=== PATIENT | female | born 1965 | race Caucasian/White ===

== ENCOUNTER 2016-07-01 00:37 | Emergency (ER) | payer MEDICARE, MEDICAID ==
[~2016-07-01] VITALS: Ht 167.6 cm; Wt 108.9 kg
[~2016-07-01 00:37] MED LIST: AMOXICILLIN500 MG PO; ASPIRIN DELAYE325 MG PO; BENADRYL25 M1 PO; CLINDAMYCIN HC300 MG PO; DIFLUCAN150 MG PO; FISH OIL 10001000 MG PO; FLONASE0.05 MG/AC NS; KEFLEX500 MG PO; KLONOPIN1 MG PO; MACROBID100 M1 PO; MEDROL DOSEPAK4 MG PO; MIRAPEX0.5 MG PO; MIRAPEX1 MG PO; MOTRIN800 MG PO; Motrin,Rufen800 MG PO; NORCO 325 MG-7.1 TAB PO; PEN-VK500 MG PO; PEPCID20 MG PO; PERCOCET 325 MG1 TA2 PO; PERCOCET 325 MG1 TA6 PO; PRAVASTATIN SOD40 MG PO; PRILOSEC20 MG PO; PYRIDIUM200 M1 PO; VALIUM10 MG PO; VICODIN 5/500 505 MG PO; VICODIN 500 MG-1 TAB PO; VITAMIN D1000 IU PO; ZESTRIL10 MG PO; ZITHROMAX Z PA250 MG PO; ZOCOR40 MG PO; ZYRTEC10 MG PO
[2016-07-01 00:43] VITALS: BP 147/85
[2016-07-01] MEDS ORDERED: HYDROCODONE BIT1 T11 PO (01:08)
[2016-07-01] MEDS ORDERED: PENICILLIN VK500 MG PO (01:08)
== END 2016-07-01 01:27 | disposition home or self-care (01) ==
LOC: ED 00:37
DX: K04.7 Periapical abscess without sinus (principal)

== ENCOUNTER 2017-01-09 01:52 | Emergency (ER) | payer MEDICARE, MEDICAID ==
[~2017-01-09] VITALS: Ht 165.1 cm; Wt 112.9 kg
[~2017-01-09 01:52] MED LIST changes: +HYDROCODONE BIT1 T11 PO; +PENICILLIN VK500 MG PO
[2017-01-09 01:57] VITALS: BP 125/78
[2017-01-09] MEDS ORDERED: CLINDAMYCIN150 MG PO (03:09)
[2017-01-09] MEDS ORDERED: VIBRAMYCIN100 MG PO (03:09)
== END 2017-01-09 04:11 | disposition home or self-care (01) ==
LOC: ED 01:52
DX: N61.1 Abscess of the breast and nipple (principal); F17.200 Nicotine dependence, unspecified, uncomplicated; Z90.710 Acquired absence of both cervix and uterus; Z98.51 Tubal ligation status; Z79.82 Long term (current) use of aspirin; Z79.899 Other long term (current) drug therapy; Z86.73 Personal history of transient ischemic attack (TIA), and cerebral infarction without residual deficits; Z98.890 Other specified postprocedural states

== ENCOUNTER → 2017-04-24 | Outpatient (CLI) | payer MEDICARE, MEDICAID ==
[~2017-04-24] MED LIST changes: +CLINDAMYCIN150 MG PO; +VIBRAMYCIN100 MG PO
== END | disposition home or self-care (01) ==
LOC: US 13:00
DX: M79.605 Pain in left leg (principal); M79.604 Pain in right leg; R60.0 Localized edema; I10 Essential (primary) hypertension

== ENCOUNTER → 2018-12-20 | Outpatient (CLI) | payer OTHER, MEDICAID ==
[2018-12-20 14:37] LABS: BASO # 0.1 10*3/uL (0.0-0.1); BASO % 0.6 % (0.0-1.0); EOS # 0.2 10*3/uL (0.0-0.4); EOS % 1.5 % (1.0-4.0); HEMATOCRIT 43.3 % (37.0-47.0); HEMOGLOBIN 13.9 g/dl (12.0-16.0); LYMPH # 2.7 10*3/uL (1.3-4.4); LYMPH % 26.7 % (27.0-41.0); MEAN CELL VOLUME 80.9 fl (81.0-99.0); MEAN CORPUSCULAR HGB CONC 32.1 g/dl (33.0-37.0); MEAN PLATELET VOLUME 10.3 fl (9.6-12.3); MONO # 0.7 10*3/uL (0.1-1.0); MONO % 7.1 % (3.0-9.0); NEUT # 6.4 10*3/uL (2.3-7.9); NEUT % 63.3 % (47.0-73.0); PLATELET COUNT AUTOMATED 344 10*3/uL (130-400); RED BLOOD COUNT 5.35 10*6/uL (4.10-5.10); RED CELL DISTRI WIDTH 15.4 % (0-14.5); WHITE BLOOD COUNT 10.1 10*3/uL (4.8-10.8)
[2018-12-20 15:37] LABS: ALBUMIN 3.3 gm/dl (3.1-4.5); ALKALINE PHOSPHATASE 89 U/L (45-117); BUN 15 mg/dl (7-24); CHLORIDE 102 mmol/L (98-107); CHOLESTEROL 172 mg/dL (<200); CREATININE 0.98 mg/dL (0.55-1.02); HDL CHOLESTEROL 33 mg/dl (40-60); LDL CHOLESTEROL 87 mg/dL (9-159); POTASSIUM 4.1 mmol/L (3.5-5.1); SGOT/AST 26 IU/L (3-35); SGPT/ALT 39 U/L (12-78); SODIUM 137 mmol/L (136-145); TOTAL PROTEIN 7.3 gm/dL (6.4-8.2); TRIGLYCERIDES 260 mg/dl (<150); VLDL CHOLESTEROL 52 mg/dL (6-40)
== END | disposition home or self-care (01) ==
LOC: LAB 13:58
PROVIDERS: Family Medicine
DX: M75.91 Shoulder lesion, unspecified, right shoulder (principal); E11.42 Type 2 diabetes mellitus with diabetic polyneuropathy; E78.5 Hyperlipidemia, unspecified; R53.83 Other fatigue

== ENCOUNTER 2023-10-09 11:21 | Emergency (ER) | payer MEDICARE, MEDICAID ==
[~2023-10-09] VITALS: Wt 99.8 kg
[2023-10-09 11:26] VITALS: BP 145/76
[2023-10-09] MEDS ORDERED: Acetaminophen/Hydrocodone 5 MG/325 MG TABLET PO ONE (12:05)
[2023-10-09] MEDS ORDERED: Lidocaine Hydrochloride 3% 30 GM CREAM T ONE (12:30)
== END 2023-10-09 14:04 | disposition home or self-care (01) ==
LOC: ED 11:21
DX: T23.202A Burn of second degree of left hand, unspecified site, initial encounter (principal); T24.222A Burn of second degree of left knee, initial encounter; T31.0 Burns involving less than 10% of body surface; I10 Essential (primary) hypertension; E11.9 Type 2 diabetes mellitus without complications; Z90.710 Acquired absence of both cervix and uterus; Z98.51 Tubal ligation status; Z98.890 Other specified postprocedural states; X08.8XXA Exposure to other specified smoke, fire and flames, initial encounter; Y93.89 Activity, other specified; Y92.89 Other specified places as the place of occurrence of the external cause; Y99.8 Other external cause status

== ENCOUNTER → 2023-10-10 | Outpatient (CLI) | payer MEDICARE, MEDICAID | END | disposition home or self-care (01) | LOC: WOUNDCARE 03:05 | PROVIDERS: ATTEND Nurse Practitioner Family | DX: T24.332A Burn of third degree of left lower leg, initial encounter (principal); T23.392A Burn of third degree of multiple sites of left wrist and hand, initial encounter; T24.222A Burn of second degree of left knee, initial encounter; T31.0 Burns involving less than 10% of body surface; I10 Essential (primary) hypertension; I25.119 Atherosclerotic heart disease of native coronary artery with unspecified angina pectoris; L53.9 Erythematous condition, unspecified; E78.00 Pure hypercholesterolemia, unspecified; Z87.891 Personal history of nicotine dependence; Z86.73 Personal history of transient ischemic attack (TIA), and cerebral infarction without residual deficits; Z90.710 Acquired absence of both cervix and uterus; Z79.82 Long term (current) use of aspirin; Z79.899 Other long term (current) drug therapy; X08.8XXA Exposure to other specified smoke, fire and flames, initial encounter; Y93.89 Activity, other specified; Y92.89 Other specified places as the place of occurrence of the external cause; Y99.8 Other external cause status ==

== ENCOUNTER → 2023-10-12 | Outpatient (CLI) | payer MEDICARE, MEDICAID | END | disposition home or self-care (01) | LOC: WOUNDCARE 11:25 | PROVIDERS: ATTEND Nurse Practitioner Family | DX: T24.332D Burn of third degree of left lower leg, subsequent encounter (principal); T23.3 Burn of third degree of wrist and hand; T24.222D Burn of second degree of left knee, subsequent encounter; T31.0 Burns involving less than 10% of body surface; I10 Essential (primary) hypertension; I25.119 Atherosclerotic heart disease of native coronary artery with unspecified angina pectoris; L53.9 Erythematous condition, unspecified; E78.00 Pure hypercholesterolemia, unspecified; Z87.891 Personal history of nicotine dependence; Z86.73 Personal history of transient ischemic attack (TIA), and cerebral infarction without residual deficits; Z90.710 Acquired absence of both cervix and uterus; Z79.82 Long term (current) use of aspirin; Z79.899 Other long term (current) drug therapy; X08.8XXD Exposure to other specified smoke, fire and flames, subsequent encounter ==

== ENCOUNTER → 2023-10-16 | Outpatient (CLI) | payer MEDICARE, MEDICAID | END | disposition home or self-care (01) | LOC: WOUNDCARE 00:09 | PROVIDERS: ATTEND Nurse Practitioner Family | DX: T24.332D Burn of third degree of left lower leg, subsequent encounter (principal); T23.3 Burn of third degree of wrist and hand; T24.222D Burn of second degree of left knee, subsequent encounter; T31.0 Burns involving less than 10% of body surface; I10 Essential (primary) hypertension; I25.119 Atherosclerotic heart disease of native coronary artery with unspecified angina pectoris; L53.9 Erythematous condition, unspecified; E78.00 Pure hypercholesterolemia, unspecified; Z87.891 Personal history of nicotine dependence; Z86.73 Personal history of transient ischemic attack (TIA), and cerebral infarction without residual deficits; Z90.710 Acquired absence of both cervix and uterus; Z79.82 Long term (current) use of aspirin; Z79.899 Other long term (current) drug therapy; X08.8XXD Exposure to other specified smoke, fire and flames, subsequent encounter ==

== ENCOUNTER → 2023-10-29 | Day surgery (SDC) | payer MEDICARE, MEDICAID ==
[~2023-10-29] VITALS: Ht 170.1 cm; Wt 99.8 kg
[~2023-10-29] MED LIST changes: +BUPIVACAINE 0.5% 0 ML IV ONE; +ENDOCET 5-3251 EACH PO; +Ketamine Hydrochloride 500 MG/10 ML VIAL IV ONE; +Lactated Ringer's Solution 1,000 ML IV ONE; +Lactated Ringer's Solution 1,000 ML IV SCH; +Lidocaine Hydrochloride 2% 10 ML AMP IM ONE; +Lidocaine Hydrochloride 30 ML VIAL ONE; +Midazolam Hydrochloride 2 MG/2 ML VIAL IV ONE; +PROPOFOL 200 MG/20 ML VIAL IV ONE; +Phenylephrine Hydrochloride 1 MG/10 ML SYRINGE IV ONE; +fentaNYL CITRATE 100 MCG/2 ML VIAL IV ONE
[2023-10-29 09:30] VITALS: BP 134/84
[2023-10-29 10:40] VITALS: BP 131/77
[2023-10-29 10:55] VITALS: BP 109/69
[2023-10-29 11:10] VITALS: BP 123/72
== END | disposition home or self-care (01) ==
LOC: SDC 10-25 10:15
PROVIDERS: ATTEND Surgery
DX: T24.222A Burn of second degree of left knee, initial encounter (principal); I10 Essential (primary) hypertension; E11.9 Type 2 diabetes mellitus without complications; Z90.710 Acquired absence of both cervix and uterus; Z87.440 Personal history of urinary (tract) infections; Z79.891 Long term (current) use of opiate analgesic; Z79.82 Long term (current) use of aspirin; Z79.899 Other long term (current) drug therapy

== ENCOUNTER → 2023-11-06 | Outpatient (CLI) | payer MEDICARE, MEDICAID ==
[~2023-11-06] MED LIST changes: -BUPIVACAINE 0.5% 0 ML IV ONE; -Ketamine Hydrochloride 500 MG/10 ML VIAL IV ONE; -Lactated Ringer's Solution 1,000 ML IV ONE; -Lactated Ringer's Solution 1,000 ML IV SCH; -Lidocaine Hydrochloride 2% 10 ML AMP IM ONE; -Lidocaine Hydrochloride 30 ML VIAL ONE; -Midazolam Hydrochloride 2 MG/2 ML VIAL IV ONE; -PROPOFOL 200 MG/20 ML VIAL IV ONE; -Phenylephrine Hydrochloride 1 MG/10 ML SYRINGE IV ONE; -fentaNYL CITRATE 100 MCG/2 ML VIAL IV ONE
== END | disposition home or self-care (01) ==
LOC: WOUNDCARE 02:38
PROVIDERS: ATTEND Nurse Practitioner Family
DX: T24.332D Burn of third degree of left lower leg, subsequent encounter (principal); T23.3 Burn of third degree of wrist and hand; T24.222D Burn of second degree of left knee, subsequent encounter; T31.0 Burns involving less than 10% of body surface; I10 Essential (primary) hypertension; I25.119 Atherosclerotic heart disease of native coronary artery with unspecified angina pectoris; L53.9 Erythematous condition, unspecified; E78.00 Pure hypercholesterolemia, unspecified; Z87.891 Personal history of nicotine dependence; Z86.73 Personal history of transient ischemic attack (TIA), and cerebral infarction without residual deficits; Z90.710 Acquired absence of both cervix and uterus; Z79.82 Long term (current) use of aspirin; Z79.899 Other long term (current) drug therapy; X08.8XXD Exposure to other specified smoke, fire and flames, subsequent encounter

== ENCOUNTER → 2023-11-21 | Outpatient (CLI) | payer MEDICARE, MEDICAID | END | disposition home or self-care (01) | LOC: WOUNDCARE 02:11 | PROVIDERS: ATTEND Nurse Practitioner Family | DX: T24.332D Burn of third degree of left lower leg, subsequent encounter (principal); T24.222D Burn of second degree of left knee, subsequent encounter; T31.0 Burns involving less than 10% of body surface; I10 Essential (primary) hypertension; I25.119 Atherosclerotic heart disease of native coronary artery with unspecified angina pectoris; L53.9 Erythematous condition, unspecified; E78.00 Pure hypercholesterolemia, unspecified; Z87.891 Personal history of nicotine dependence; Z86.73 Personal history of transient ischemic attack (TIA), and cerebral infarction without residual deficits; Z90.710 Acquired absence of both cervix and uterus; Z79.82 Long term (current) use of aspirin; Z79.899 Other long term (current) drug therapy; X08.8XXD Exposure to other specified smoke, fire and flames, subsequent encounter ==

== ENCOUNTER → 2023-12-05 | Outpatient (CLI) | payer MEDICARE, MEDICAID | END | disposition home or self-care (01) | LOC: WOUNDCARE 01:01 | PROVIDERS: ATTEND Nurse Practitioner Family | DX: T24.332D Burn of third degree of left lower leg, subsequent encounter (principal); T24.222D Burn of second degree of left knee, subsequent encounter; T31.0 Burns involving less than 10% of body surface; I10 Essential (primary) hypertension; I25.119 Atherosclerotic heart disease of native coronary artery with unspecified angina pectoris; L53.9 Erythematous condition, unspecified; E78.00 Pure hypercholesterolemia, unspecified; Z87.891 Personal history of nicotine dependence; Z86.73 Personal history of transient ischemic attack (TIA), and cerebral infarction without residual deficits; Z90.710 Acquired absence of both cervix and uterus; Z79.82 Long term (current) use of aspirin; Z79.899 Other long term (current) drug therapy; X08.8XXD Exposure to other specified smoke, fire and flames, subsequent encounter ==

== ENCOUNTER → 2023-12-12 | Outpatient (CLI) | payer MEDICARE, MEDICAID | END | disposition home or self-care (01) | LOC: WOUNDCARE 00:20 | PROVIDERS: ATTEND Nurse Practitioner Family | DX: T23.202D Burn of second degree of left hand, unspecified site, subsequent encounter (principal); T24.232D Burn of second degree of left lower leg, subsequent encounter; T24.222D Burn of second degree of left knee, subsequent encounter; L53.9 Erythematous condition, unspecified; T31.0 Burns involving less than 10% of body surface; I10 Essential (primary) hypertension; I25.119 Atherosclerotic heart disease of native coronary artery with unspecified angina pectoris; E78.00 Pure hypercholesterolemia, unspecified; Z87.891 Personal history of nicotine dependence; Z86.73 Personal history of transient ischemic attack (TIA), and cerebral infarction without residual deficits; Z90.710 Acquired absence of both cervix and uterus; X08.8XXD Exposure to other specified smoke, fire and flames, subsequent encounter ==

== ENCOUNTER 2023-12-29 21:00 | Emergency (ER) | payer MEDICARE, MEDICAID ==
[~2023-12-29] VITALS: Ht 170.2 cm; Wt 99.8 kg
[2023-12-29 21:27] VITALS: BP 129/71
[2023-12-29] MEDS ORDERED: Acetaminophen/Oxycodone 5 MG/325 MG TABLET PO ONE (22:40)
== END 2023-12-29 23:22 | disposition home or self-care (01) ==
LOC: ED 21:00
DX: S60.222A Contusion of left hand, initial encounter (principal); I10 Essential (primary) hypertension; E11.9 Type 2 diabetes mellitus without complications; Z90.710 Acquired absence of both cervix and uterus; Z98.51 Tubal ligation status; Z98.890 Other specified postprocedural states; X58.XXXA Exposure to other specified factors, initial encounter; Y93.89 Activity, other specified; Y92.89 Other specified places as the place of occurrence of the external cause; Y99.8 Other external cause status

== ENCOUNTER 2025-03-25 13:02 | Emergency (ER) | payer OTHER, MEDICAID ==
[~2025-03-25] VITALS: Wt 104.3 kg
[2025-03-25 13:10] VITALS: BP 148/79
[2025-03-25] MEDS ORDERED: Dexamethasone Sodium Phospha 20 MG/5 ML VIAL IM ONE (13:20)
[2025-03-25] MEDS ORDERED: METHOCARBAMOL750 M1 PO (14:18)
[2025-03-25] MEDS ORDERED: PREDNISONE20 M1 PO (14:18)
[2025-03-25] MEDS ORDERED: PERCOCET 5-3251 EACH PO (14:18)
== END 2025-03-25 14:27 | disposition home or self-care (01) ==
LOC: ED 13:02
DX: M75.31 Calcific tendinitis of right shoulder (principal); M75.101 Unspecified rotator cuff tear or rupture of right shoulder, not specified as traumatic; I10 Essential (primary) hypertension; E11.9 Type 2 diabetes mellitus without complications; Z90.710 Acquired absence of both cervix and uterus